=== PATIENT | female | born 1980 | race Caucasian/White ===

== ENCOUNTER → 2021-04-25 13:39 | Outpatient (CLI) | payer SELFPAY | PROVIDERS: Referring Provider Internal Medicine; Visit Provider Internal Medicine | DX: Z23 Encounter for immunization (principal) | CPT/HCPCS: 90471; 90686 ==

== ENCOUNTER → 2021-07-15 07:28 | Outpatient (CLI) | payer OTHER, SELFPAY ==
[2021-07-15 08:22] LABS: Add Manual Diff / Slide Review NO; Basophils Absolute Auto 0 /uL (0-100); Basophils Percent Auto 0.3 % (0-2); Eosinophils Absolute Auto 100 /uL (0-450); Eosinophils Percent Auto 1.6 % (2-4); Hematocrit 38.2 % (36-46); Hemoglobin 12.5 g/dL (12.0-16.0); Lymphocytes Absolute Auto 1900 /uL (1100-4500); Lymphocytes Percent Auto 26.3 % (25-40); Mean Corpuscular HGB Conc 32.7 % (30-36); Mean Corpuscular Hemoglobin 26.9 PG (26-34); Mean Corpuscular Volume 82.3 fL (80-100); Monocytes Absolute Auto 300 /uL (0-900); Monocytes Percent Auto 4.4 % (3-14); Neutrophils Absolute Auto 5000 /uL (1500-7000); Neutrophils Percent Auto 67.4 % (50-75); Platelet Count 271 X10^3/uL (150-400); Red Blood Cell Count 4.65 X10^6/uL (4.0-5.2); Red Cell Distribution Width 14.6 % (11.6-14.8); White Blood Cell Count 7.4 X10^3/uL (4.5-11.0)
[2021-07-15 08:30] LABS: Hemoglobin A1C% w Est Avg Glu 6.5 % (4.0-6.0)
[2021-07-15 08:51] LABS: Follicle Stimulating Hormone 9.38 mIU/mL
[2021-07-15 08:58] LABS: Alanine Aminotransferase 54 IU/L (<35); Albumin 4.5 g/dL (3.5-5.0); Albumin Globulin Ratio 1.3 (1.0-2.8); Alkaline Phosphatase 108 U/L (38-126); Aspartate Aminotransferase 41 IU/L (14-36); BUN Creatinine Ratio 19.6 (6-22); Bilirubin Total 0.3 mg/dL (0.2-1.3); Blood Urea Nitrogen 10 mg/dL (7-17); Calcium 9.7 mg/dL (8.4-10.2); Carbon Dioxide 27 mmol/L (22-32); Chloride 103 mmol/L (98-107); Cholesterol 205 mg/dL (140-199); Estimated Glomerular Filt Rate > 60.0 mL/min (>60); Globulin 3.4 g/dL (1.7-4.1); Glucose 125 mg/dL (70-100); HDL Cholesterol 55 mg/dL (40-60); HEMOLYSIS < 15 (0-50); LDL Cholesterol Calculated 127 mg/dL (<100); Potassium 4.1 mmol/L (3.4-5.1); Sodium 137 mmol/L (137-145); Total Protein 7.9 g/dL (6.3-8.2); Triglycerides 114 mg/dL (35-150)
[2021-07-15 09:07] LABS: Estradiol, Total 36.4 pg/mL
[2021-07-15 09:13] LABS: HCG Quantitative /Beta subunit < 2.4 mIU/mL; Prolactin 13.5 ng/mL (3.0-18.6)
[2021-07-15 09:28] LABS: TSH w/ Reflex to FT4 3.82 uIU/mL (0.47-4.68)
== END ==
PROVIDERS: PCP Nurse Practitioner Family; Referring Provider Nurse Practitioner Family; Visit Provider Nurse Practitioner Family
DX: Z00.8 Encounter for other general examination (principal); N91.2 Amenorrhea, unspecified; E66.01 Morbid (severe) obesity due to excess calories
CPT/HCPCS: 36415; 80053; 80061; 82670; 83001; 83036; 84146; 84443; 84702; 85025

== ENCOUNTER → 2021-08-07 07:30 | Outpatient (CLI) | payer OTHER, SELFPAY ==
--- NOTE | 2021-08-07 | DI.MG.S_ITS ---
BILATERAL DIGITAL SCREENING MAMMOGRAM 3D/2D WITH CAD: 08/07/2021 CLINICAL: Baseline exam. Routine screening. No prior exams were available for comparison. The tissue of both breasts is heterogeneously dense. This may lower the sensitivity of mammography. Current study was also evaluated with a Computer Aided Detection (CAD) system. No significant masses, calcifications, or other findings are seen in either breast. IMPRESSION: NEGATIVE There is no mammographic evidence of malignancy. A 1 year screening mammogram is recommended. This exam was interpreted at Station ID: [id number]. NOTE: For mammograms, a report in lay terms will be sent to the patient. Approximately 15% of breast malignancies will not be visualized mammographically. In the management of a palpable breast mass, a negative mammogram must not discourage biopsy of a clinically suspicious lesion. Electronically Signed By: Nestor stewart/betsy:08/07/2021 18:41:58 letter sent: Normal Exam ACR BI-RADS Category 1: Negative 3341F
== END ==
PROVIDERS: PCP Nurse Practitioner Family; Referring Provider Nurse Practitioner Family; Visit Provider Nurse Practitioner Family
DX: Z12.31 Encounter for screening mammogram for malignant neoplasm of breast (principal)
CPT/HCPCS: 77063; 77067

== ENCOUNTER → 2021-08-23 07:07 | Outpatient (CLI) | payer OTHER, SELFPAY ==
--- NOTE | 2021-08-23 07:09 | DI.US.S_ITS ---
PROCEDURE: US PELVIC COMPLETE INDICATIONS: AMENORRHEA TECHNIQUE: Real-time scanning was performed of the pelvic organs, with image documentation. Additional endovaginal scanning was necessary due to incomplete visualization of the adnexal and endometrial structures by transabdominal scanning. COMPARISON: None. FINDINGS: Uterus: Uterus is retroverted and normal in size at 8.8 x 5.5 x 7.5 cm. The myometrium is heterogeneous and includes several myometrial masses. An intramural mass along the posterior mid body measures up to 2.2 cm. Subserosal anterior midbody mass measures up to 4.2 cm. A right posterior intramural mass measures 1.8 cm. The endometrium measures seven mm combined thickness. The endometrial contour is not well seen. Ovaries: Neither ovary was seen. No suspicious adnexal mass. Other: No pathologic free abdominal or pelvic fluid. IMPRESSION: 1. Heterogeneous retroverted uterus containing several fibroids. 2. Nonvisualization of either ovary. We strive to produce accurate, complete, and clear reports of imaging services. To assist us in improving patient care, this report was composed using standard report templates and voice recognition software. Therefore, it may contain abnormal punctuation, insertions and/or omissions. Occasional wrong-word or sound-alike substitutions may occur. Though we review the report and make efforts to correct it, we do recommend that the report be read carefully in proper context to recognize any text inaccuracies. Dictated by: Rae Jade M.D. on 08/23/2021 at 11:34 Approved by: Rae Jade M.D. on 08/23/2021 at 11:38
== END ==
PROVIDERS: PCP Nurse Practitioner Family; Referring Provider Obstetrics & Gynecology; Visit Provider Obstetrics & Gynecology
DX: N91.2 Amenorrhea, unspecified (principal); R10.2 Pelvic and perineal pain; N85.4 Malposition of uterus; D25.1 Intramural leiomyoma of uterus; D25.2 Subserosal leiomyoma of uterus
CPT/HCPCS: 76830; 76856

== ENCOUNTER 2021-10-01 06:37 | Emergency (ER) | payer OTHER, SELFPAY ==
[2021-10-01 06:51] VITALS: BP 183/94; PULSE 94; RESP 18; TEMP 36.1; O2SAT 97; BMI 34.9
--- NOTE | 2021-10-01 06:55 | DI.RAD.S_ITS ---
PROCEDURE: XR KNEE LT 3V INDICATIONS: knee pain, prior surgery TECHNIQUE: 3 views of the knee were acquired. COMPARISON: [facility], CR, KNEE 1 OR 2VW (LT), 12/18/2014, 10:33. [facility], CR, XR KNEE 1 OR 2VW LT, 02/01/2015, 10:31. [facility], CR, XR KNEE 1 OR 2VW LT, 04/02/2015, 9:40. [facility], CR, XR KNEE 1 OR 2VW LT, 05/21/2015, 9:45. [facility], CR, KNEE 3V LEFT, 10/01/2014, 2:13. FINDINGS: Bones: Old patellar fracture with ORIF. There is fracture of the surgical wire. No fractures or dislocations. No suspicious bony lesions. Mild tricompartmental degenerative joint disease. Soft tissues: No joint effusion. No suspicious soft tissue calcifications. IMPRESSION: 1. Old patellar fracture with internal fixation. There is fracture of the surgical wire. 2. Mild degenerative joint disease. Dictated by: Danielle Sidhu M.D. on 10/01/2021 at 8:47 Approved by: Danielle Sidhu M.D. on 10/01/2021 at 8:51
--- NOTE | 2021-10-01 06:56 | PC.NURSE ---
pt broke her kneecap in 2014 and has a pin and wire in her knee cap
--- NOTE | 2021-10-01 07:17 | ED.LOWEXIN ---
HPI - Extremity Injury (Lower) General Chief Complaint: Extremity Injury, Lower Stated Complaint: Left knee sharp pain, hx of break/surgery Time Seen by Provider: 10/01/21 06:44 Source: patient Mode of arrival: Ambulatory History of Present Illness HPI Narrative: 41F nonsmoker with history of left knee patellar fracture and surgical repair (in 2014) presents with a chief complaint of sharp and stabbing left knee pain over the past few days. She denies any injury. She denies any swelling or discoloration, she has had no fever or chills. Her pain is worse when she ambulates and improves with rest. She still has her knee immobilizer at home, surgery was done by Dr. Morel. She is otherwise well and free of complaint Related Data Previous Rx's Medication Instructions Recorded tramadol 50 mg tablet 1 - 2 tab PO Q4HP PRN #10 tab 05/22/17 Allergies Allergy/AdvReac Type Severity Reaction Status Date / Time No Known Allergies Allergy Uncoded 10/01/21 06:51 Review of Systems Review of Systems Narrative: GENERAL: Denies chills, fatigue, malaise, fever, sweats. HEENT: Denies sinus pain, ear pain, sore throat, difficulty swallowing, dizziness. RESPIRATORY: Denies dyspnea, cough, wheezing, hemoptysis, sputum. CARDIOVASCULAR: Denies chest pain, palpitations, orthopnea, edema, GASTROINTESTINAL: Denies nausea, vomiting, abdominal pain, diarrhea, constipation, melena. : Denies dysuria, frequency, incontinence, hematuria, urinary retention. MUSCULOSKELETAL: See HPI SKIN: Denies rash, skin lesions, or other NEUROLOGIC: Denies weakness, headache, numbness, change in speech, confusion, seizures, incoordination. PSYCHIATRIC: No concerning psychosocial issues. 12 point review of systems is negative except for those stated above Exam Narrative Exam Narrative: GEN: AOx3 and in mild distress EYES: Pupils are equal, round, and reactive to light and accommodation. Extraoccular muscles are intact bilaterally. There is no subconjunctival hemorrhage or exudate. CHEST: Lungs are clear to auscultation bilaterally and free of wheezes, rales, or rhonchi. Heart rate is regular rhythm, there are no murmurs, clicks, rubs, or gallops. There is no chest wall tenderness. ABD: Abdomen is soft and nontender. There is no guarding or rebound. Bowel sounds are normal in all 4 quadrants. There is no mass or organomegaly. EXT: Full but painful range of motion of left knee without effusion, erythema or obvious deformity. Hardware is palpable on the patella, no evidence of ligamentous instability SKIN: Warm, pink, and dry. No erythema or rash Initial Vital Signs Initial Vital Signs: Vital Signs Temperature 97 F L 10/01/21 06:51 Pulse Rate 94 H 10/01/21 06:51 Respiratory Rate 18 10/01/21 06:51 Blood Pressure 183/94 H 10/01/21 06:51 Pulse Oximetry 97 10/01/21 06:51 Course Orders Ordered: ED Orders 10/01/21 06:55 XR knee LT 3V Stat Consultations Consultation #1: Discussed with on-call orthopedist. There has been review of imaging, no indication for any intervention at this time, recommends following up with Dr. Morel Vital Signs Vital signs: Vital Signs - 8 hr 10/01/21 06:51 Temperature 97 F L Pulse Rate 94 H Respiratory Rate 18 Blood Pressure 183/94 H Pulse Oximetry 97 MDM - Extremity Injury (Lower) Imaging Data Extremity x-ray #1: Radiologist's Impression: Launch?[place] [address] XRay Report Signed Patient: Zayda Hair MR#: [id number] : 1980 Acct:[id number] Age/Sex: 41 / F Date of Service: 10/01/21 Loc: ED Accession Number: [id number] ?? Procedure: XR knee LT 3V Ordering Provider: Gurpreet Sandhu D.O. PROCEDURE:? XR KNEE LT 3V ? INDICATIONS:? knee pain, prior surgery ? TECHNIQUE:? 3 views of the knee were acquired.? ? COMPARISON:? [facility] JENNIE Campuzano, KNEE 1 OR 2VW (LT), 12/18/2014, 10:33.? [facility] [place], XR KNEE 1 OR 2VW LT, 02/01/2015, 10:31.? [facility]opedic JENNIE Graham, XR KNEE 1 OR 2VW LT, 04/02/2015, 9:40.? [facility]opedic JENNIE Graham, XR KNEE 1 OR 2VW LT, 05/21/2015, 9:45.? [facility], CR, KNEE 3V LEFT, 10/01/2014, 2:13. ? FINDINGS:? ? Bones:? Old patellar fracture with ORIF.? There is fracture of the surgical wire.? No fractures or dislocations.? No suspicious bony lesions.? Mild tricompartmental degenerative joint disease. ? Soft tissues:? No joint effusion.? No suspicious soft tissue calcifications.? ? ? IMPRESSION:? ? 1. Old patellar fracture with internal fixation.? There is fracture of the surgical wire. 2. Mild degenerative joint disease.? ? ? Dictated by: Danielle Sidhu M.D. on 10/01/2021 at 8:47 ? ? Approved by: Danielle Sidhu M.D. on 10/01/2021 at 8:51 ? Discharge Plan Departure Patient Disposition: Home Clinical Impression: Anterior knee pain Activity Restrictions/Additional Instructions: *You have been diagnosed with [left anterior knee pain, x-ray suggests a broken surgical wire which is incredibly common with this surgery. I have spoken with Dr. Morel's partner who has reviewed the Xray and suggests following up with Dr. Morel, but there is very little evidence to suggest that you would need a procedure to fix this. *What to do: *Please continue to take your regular medications as directed. [ ] New medication prescriptions sent to your pharmacy: [ ] [ ] New medication written as a paper prescription [x ] No new medications given *Please follow up with Dr. Morel, call today for an appointment. Let them know you were seen in the Emergency Department and that we ask that you be seen in follow up. We will electronically transmit a record of today's note if your PCP is in our system *Return to Emergency Department if you should have any new, worsening or concerning symptoms, such as [fever greater than 101 F, shaking chills, worsening pain, persistent vomiting or other bothersome symptoms] Prescriptions: No Action tramadol 50 MG tablet 1 - 2 tab PO Q4HP PRNQty: 10 0RF Referrals: Art Morel MD [Physician] - Laura Caballero ARNP [Primary Care Provider] -
== END 2021-10-01 09:20 | disposition home or self-care (01) ==
PROVIDERS: Emergency Provider Emergency Medicine; PCP Nurse Practitioner Family
DX: M25.562 Pain in left knee (principal)
CPT/HCPCS: 73562; 99283

== ENCOUNTER → 2021-10-21 15:42 | Outpatient (CLI) | payer OTHER, SELFPAY ==
[2021-10-21 17:35] LABS: Free T3, Triiodothyronine Free 4.37 pg/mL (2.77-5.27); Free T4, Direct Thyroxine 1.17 ng/dL (0.78-2.19)
[2021-10-21 17:48] LABS: Thyroid Stimulating Hormone 5.39 uIU/mL (0.47-4.68)
[2021-10-27 10:00] LABS: Percent Free Testosterone 3.19 % (0.50-2.80); Testosterone Free 0.24 ng/dL (0.10-0.85); Testosterone Total 7.4 ng/dL (.)
[2021-10-28 19:16] LABS: Triiodothyronine T3 Reverse 14.9 ng/dL (9.2-24.1)
== END ==
PROVIDERS: PCP Nurse Practitioner Family; Referring Provider Obstetrics & Gynecology; Visit Provider Obstetrics & Gynecology
DX: R23.2 Flushing (principal)
CPT/HCPCS: 36415; 84402; 84403; 84439; 84443; 84481; 84482

== ENCOUNTER → 2022-01-23 06:20 | Outpatient (CLI) | payer OTHER, SELFPAY ==
[2022-01-23 09:15] LABS: Add Manual Diff / Slide Review NO; Basophils Absolute Auto 0 /uL (0-100); Basophils Percent Auto 0.5 % (0-2); Eosinophils Absolute Auto 100 /uL (0-450); Eosinophils Percent Auto 1.7 % (2-4); Hematocrit 38.4 % (36-46); Hemoglobin 12.9 g/dL (12.0-16.0); Lymphocytes Absolute Auto 2400 /uL (1100-4500); Lymphocytes Percent Auto 29.9 % (25-40); Mean Corpuscular HGB Conc 33.6 % (30-36); Mean Corpuscular Hemoglobin 28.2 PG (26-34); Mean Corpuscular Volume 83.8 fL (80-100); Monocytes Absolute Auto 400 /uL (0-900); Neutrophils Absolute Auto 5000 /uL (1500-7000); Neutrophils Percent Auto 62.9 % (50-75); Platelet Count 186 X10^3/uL (150-400); Red Blood Cell Count 4.58 X10^6/uL (4.0-5.2)
[2022-01-23 09:27] LABS: Alanine Aminotransferase 137 IU/L (<35); Albumin 4.3 g/dL (3.5-5.0); Albumin Globulin Ratio 1.5 (1.0-2.8); Alkaline Phosphatase 135 U/L (38-126); Aspartate Aminotransferase 107 IU/L (14-36); BUN Creatinine Ratio 23.8 (6-22); Bilirubin Total 0.5 mg/dL (0.2-1.3); Blood Urea Nitrogen 10 mg/dL (7-17); Calcium 8.9 mg/dL (8.4-10.2); Carbon Dioxide 26 mmol/L (22-32); Chloride 99 mmol/L (98-107); Cholesterol 192 mg/dL (140-199); Estimated Glomerular Filt Rate > 60 mL/min (>60); Globulin 2.9 g/dL (1.7-4.1); Glucose 209 mg/dL (70-100); HDL Cholesterol 44 mg/dL (40-60); HEMOLYSIS < 15 (0-50); LDL Cholesterol Calculated 122 mg/dL (<100); Potassium 3.9 mmol/L (3.4-5.1); Sodium 136 mmol/L (137-145); Total Protein 7.2 g/dL (6.3-8.2); Triglycerides 131 mg/dL (35-150)
[2022-01-23 09:28] LABS: Hemoglobin A1C% w Est Avg Glu 9.1 % (4.0-6.0)
[2022-01-23 10:10] LABS: TSH w/ Reflex to FT4 3.62 uIU/mL (0.47-4.68)
[2022-01-23 10:49] LABS: Creatinine Urine Random 191.8 mg/dL
[2022-01-23 11:20] LABS: Microalbumi Creatinin Ratio Ur 152.7 ug/mg CR (<30); Microalbumin Urine Random 29.3 mg/dL (0-1.6)
== END ==
PROVIDERS: PCP Family Medicine; Referring Provider Family Medicine; Visit Provider Family Medicine
DX: E03.9 Hypothyroidism, unspecified (principal); E78.5 Hyperlipidemia, unspecified; E73.9 Lactose intolerance, unspecified; R74.8 Abnormal levels of other serum enzymes
CPT/HCPCS: 36415; 80053; 80061; 82043; 82570; 83036; 84443; 85025

== ENCOUNTER → 2022-01-27 06:07 | Outpatient (CLI) | payer OTHER, SELFPAY ==
[2022-01-27 09:08] LABS: Cortisol AM (Before 10AM) 1.28 ug/dL (4.46-22.7)
[2022-01-28 00:20] LABS: HBsAg Screen Negative (Negative); Hepatitis A Antibody IgM Negative (Negative); Hepatitis B Core Antibody IgM Negative (Negative); Hepatitis C Antibody <0.1 s/co ratio (0.0-0.9)
[2022-01-30 17:12] LABS: Cortisol Fr ug/24hr urine 23 ug/24 hr (6-42); Cortisol, Free, Urine 11 ug/L (Undefined)
== END ==
PROVIDERS: PCP Family Medicine; Referring Provider Family Medicine; Visit Provider Family Medicine
DX: E03.9 Hypothyroidism, unspecified (principal); E11.69 Type 2 diabetes mellitus with other specified complication; E66.9 Obesity, unspecified; R73.9 Hyperglycemia, unspecified; R74.8 Abnormal levels of other serum enzymes; N91.5 Oligomenorrhea, unspecified; R63.5 Abnormal weight gain
CPT/HCPCS: 36415; 80074; 82530; 82533

== ENCOUNTER → 2022-03-04 09:00 | Outpatient (CLI) | payer OTHER, SELFPAY | PROVIDERS: PCP Family Medicine; Referring Provider Internal Medicine; Visit Provider Internal Medicine | DX: Z23 Encounter for immunization (principal) | CPT/HCPCS: 90471; 90686 ==

== ENCOUNTER → 2022-04-03 09:15 | Outpatient (CLI) | payer OTHER, SELFPAY ==
--- NOTE | 2022-04-16 10:04 | DIAB.MNT ---
Initial Diabetes Medical Nutrition Therapy Assessment Name: Zayda Hair Date: 04/03/22 Time: [id number] Dx: Type II Diabetes Provider: Aracelis Zayda presents for initial visit regarding new dx of T2DM. +FH of DM with mother, sister, and maternal grandparents. Reports +60# over 5 months for unknown reasons. States she plans to make an resident athletic trainer appointment. States she has not had a menstrual cycle since Mar 2021. Plans to see PCP again 04/25 at which time she plans to discuss SMBG. 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 She recent switched to this schedule of 11p-730a. Often goes hours during her shift without eating. Reports efforts to cut down on chips and cookies. Cut out soda last 2 weeks. use to have q day. Diet Recall: 530-6p: 2c pasta with meat or veggies sauce OR pizza x 2-3 slices OR chicken with 1c potatoes or stuffing x 1c or 2c hamburger helper (30-90g CHO) 2-3p: PBJ sandwich or nothing (0-45g CHO) 9a: eggs, toast x 2 with butter or cheerios x 1c wtih 1c milk and 8oz juice (30-65g CHO) 12-1p: if awake sandwich (30-45g) or nothing Anthropometrics: Ht: 65 Wt: 266# Weight history: Reported UBW: 180-200# Physical Activity: Walking treadmill 20 min 3 days per week for last couple months Self-Monitoring Blood Glucose: None yet Diabetes Medications: 1000mg Metformin BID Glipizide 5mg XR Pertinent Labs: 01/2022 HgA1c: 9.1% LDL: 122 H Total cholesterol: 192 HDL: 44 L AST: 107 H ALT: 137 H Past Medical History: (Last Updated 03/14/22 @ 13:37 by Garrison Hsu MD) Back strain Chronic back pain Diabetes mellitus type 2 in obese Excessive daytime sleepiness Hyperglycemia Hypothyroidism Nutrition Rx: Carbohydrates: Meal:30-45g Snack:15g Nutrition Diagnosis: - Excessive CHO intake r/t nutrition knowledge deficit and long periods of fasting aeb diet recall - Suboptimal physical activity r/t just starting new program aeb pt report - Predicted inadequate fiber intake r/t nutrition knowledge deficit aeb limited veggies and whole grain intake Intervention: This participant was very receptive. Provided appropriate educational handouts. Discussed the following topics: Completed intake assessment. Discussed barriers to care. Pathophysiology of T2DM HgA1c, its correlation to blood glucose numbers, and rationale for goal Importance of self-monitoring, how often, and when to check. Suggested checking at different times to evaluate meals Plate Method, impact of macronutrients on blood sugar, meal timing, carbohydrate counting, pairing macronutrients and spreading out carbohydrates for better blood glucose management Recommended servings for carbohydrates at meals and snacks Heart health nutrition Brainstormed appropriate meal plan based on food preferences Role of physical activity and following provider guidelines for safety Created SMART goals for patient self-care and success. Goals: Pair carbs and protein for meals/snacks Add vegetables to dinner Add one more exercise 3 days per week Follow-up: [facility] follow-up in 3 weeks for DSME classes and then 1:1 follow-up thereafter. Sylvia Hernandez RDN, [facility] Certified Diabetes Care and Television Mechanic P: [phone] Thank you for this referral
== END ==
PROVIDERS: PCP Family Medicine; Referring Provider Family Medicine; Visit Provider Family Medicine
DX: E11.9 Type 2 diabetes mellitus without complications (principal); Z79.84 Long term (current) use of oral hypoglycemic drugs; Z71.3 Dietary counseling and surveillance
CPT/HCPCS: 97802

== ENCOUNTER → 2022-04-14 07:28 | Outpatient (CLI) | payer OTHER, SELFPAY ==
[2022-04-14 10:41] LABS: Alanine Aminotransferase 103 IU/L (<35); Albumin 4.5 g/dL (3.5-5.0); Albumin Globulin Ratio 1.3 (1.0-2.8); Alkaline Phosphatase 126 U/L (38-126); Aspartate Aminotransferase 76 IU/L (14-36); Bilirubin Total 0.3 mg/dL (0.2-1.3); Blood Urea Nitrogen 10 mg/dL (7-17); Carbon Dioxide 23 mmol/L (22-32); Chloride 102 mmol/L (98-107); Estimated Glomerular Filt Rate > 60 mL/min (>60); Globulin 3.4 g/dL (1.7-4.1); Glucose 190 mg/dL (70-100); HEMOLYSIS < 15 (0-50); Potassium 4.2 mmol/L (3.4-5.1); Sodium 139 mmol/L (137-145); Total Protein 7.9 g/dL (6.3-8.2)
== END ==
PROVIDERS: PCP Family Medicine; Referring Provider Family Medicine; Visit Provider Family Medicine
DX: E03.9 Hypothyroidism, unspecified (principal); E11.69 Type 2 diabetes mellitus with other specified complication; E66.9 Obesity, unspecified; G89.29 Other chronic pain; M54.9 Dorsalgia, unspecified; R74.8 Abnormal levels of other serum enzymes
CPT/HCPCS: 36415; 80053; 83036

== ENCOUNTER → 2022-05-13 08:12 | Outpatient (CLI) | payer OTHER, SELFPAY ==
--- NOTE | 2022-05-13 09:29 | DIAB.MNTFU ---
Follow-up Diabetes Medical Nutrition Therapy Assessment Name: Zayda Hair Date: 05/13/22 Time: 470-901a Dx: Type II Diabetes Provider: Aracelis Zayda presents for follow-up with improved HgA1c form 9.1% to 8%. Increase in glipizide to 10mg daily since seeing PCP. Has endo visit scheduled for June. Also has sleep study 05/26 and liver ultrasound this thursday. Reports reduced carb portions since last visit and more small/consistent meal/snacks through the day. Feels this change has helped reduce her hunger and urge to eat all the time. Overall, improved energy reported since BG reduced. Diet Recall: 6pm: 1c pasta with chicken and veggies 1am: sandwich 3-4p: nothing or fruit or carrots 8a: bagel sandwich with egg and cheese sometimes may wake for 1-2p lunch: sandwich Anthropometrics: Wt: declined wt today; feels she is losing weight, but would like to wait on weighing in. Ht: 65 Last Wt: At PCP indicated increase in wt. Hoping for more info from endo visit in Jun. Weight history: Reported UBW: 180-200# Physical Activity: Walking treadmill 30-45 min 3 days per week. Increased from 20min. Also trying to be more active at work. Sedentary job. tries to walk when not busy. Self-Monitoring Blood Glucose: States pharmacy said insurance will not cover. Asked that she contact insurance as this does not seem correct with Dm diagnosis. She purchased a reli-on meter. FBG reports 100-105 mg/dl (in goal) and after dinner 140-150mg/dl (in goal). Diabetes Medications: 1000mg Metformin BID Glipizide 10mg XR Pertinent Labs: HgA1c, AST and ALT reduced since January. 04/2022 HgA1c 8% AST 76 ALT 103 01/2022 HgA1c: 9.1% LDL: 122 H Total cholesterol: 192 HDL: 44 L AST: 107 H ALT: 137 H Past Medical History: (Last Reviewed 04/24/22 @ 09:07 by Americo Jones MD) Back strain Chronic back pain Diabetes mellitus type 2 in obese Excessive daytime sleepiness Hyperglycemia Hypothyroidism Nutrition Rx: Carbohydrates: Meal:30-45g Snack:15g Nutrition Diagnosis: - Excessive CHO intake r/t nutrition knowledge deficit and long periods of fasting aeb diet recall- improved - Suboptimal physical activity r/t just starting new program aeb pt report- improved - Predicted inadequate fiber intake r/t nutrition knowledge deficit aeb limited veggies and whole grain intake- improved Intervention: This participant was very receptive. Provided appropriate educational handouts. Discussed the following topics: Blood sugar review and trends. Nutrition plan and satiety Impact hyperglycemia has on fatigue Physical activity plan and progress Created SMART goals for patient self-care and success. Goals: Pair carbs and protein for meals/snacks- improved Add vegetables to dinner- met Add one more exercise 3 days per week- not met (increased time instead) Call insurance about SMBG coverage- new Consider more consistent 4-5a snack- new Add protein to fruit- new Follow-up: [facility] follow-up in June for DSME classes and then 1:1 follow-up thereafter. Offered sooner 1:1 prn, but Zayda feels she is doing well with changes. Sylvia Hernandez RDN, [facility] Certified Diabetes Care and Assurance Manager Insurance P: [phone] Thank you for this referral
== END ==
PROVIDERS: PCP Family Medicine; Referring Provider Family Medicine; Visit Provider Family Medicine
DX: E11.9 Type 2 diabetes mellitus without complications (principal); Z79.84 Long term (current) use of oral hypoglycemic drugs; Z71.3 Dietary counseling and surveillance
CPT/HCPCS: 97803

== ENCOUNTER → 2022-05-19 06:46 | Outpatient (CLI) | payer OTHER, SELFPAY ==
--- NOTE | 2022-05-19 06:47 | DI.US.S_ITS ---
PROCEDURE: US ABDOMEN LIMITED INDICATIONS: elevated liver enzymes TECHNIQUE: Real-time focused scanning was performed of the abdomen, with image documentation. COMPARISON: None. FINDINGS: Liver is diffusely increased in echogenicity. No focal hepatic abnormalities identified. Normal hepatic size.No gallstones identified. Normal gallbladder wall. No pericholecystic fluid. Negative sonographic Jaramillo sign. Extrahepatic bile duct is not well seen. Pancreas not well seen. IMPRESSION: 1. Increased hepatic echogenicity noted possibly related to hepatic steatosis but other sources of hepatocellular disease cannot be excluded. Recommend clinical correlation. Dictated by: Luther Adler [facility] Interpreted: Andrés Nicholson MD on 05/19/2022 at 16:49 Transcribed by: BERNADETTE on 05/19/2022 at 16:50 Approved by: Andrés Nicholson M.D. on 05/19/2022 at 18:21
== END ==
PROVIDERS: PCP Family Medicine; Referring Provider Family Medicine; Visit Provider Family Medicine
DX: E11.69 Type 2 diabetes mellitus with other specified complication (principal); E66.9 Obesity, unspecified; R74.8 Abnormal levels of other serum enzymes
CPT/HCPCS: 76705

== ENCOUNTER → 2022-07-14 07:27 | Outpatient (CLI) | payer OTHER, SELFPAY ==
[2022-07-14 08:23] LABS: Add Manual Diff / Slide Review NO; Basophils Absolute Auto 100 /uL (0-100); Basophils Percent Auto 0.5 % (0-2); Eosinophils Absolute Auto 300 /uL (0-450); Eosinophils Percent Auto 2.5 % (2-4); Hematocrit 36.6 % (36-46); Hemoglobin 11.8 g/dL (12.0-16.0); Lymphocytes Absolute Auto 2700 /uL (1100-4500); Lymphocytes Percent Auto 23.3 % (25-40); Mean Corpuscular HGB Conc 32.3 % (30-36); Mean Corpuscular Hemoglobin 27.2 PG (26-34); Mean Corpuscular Volume 84.2 fL (80-100); Monocytes Absolute Auto 600 /uL (0-900); Monocytes Percent Auto 4.8 % (3-14); Neutrophils Absolute Auto 8000 /uL (1500-7000); Neutrophils Percent Auto 68.9 % (50-75); Platelet Count 275 X10^3/uL (150-400); Red Blood Cell Count 4.34 X10^6/uL (4.0-5.2); Red Cell Distribution Width 14.4 % (11.6-14.8); White Blood Cell Count 11.7 X10^3/uL (4.5-11.0)
[2022-07-14 08:32] LABS: Hemoglobin A1C% w Est Avg Glu 6.9 % (4.0-6.0)
[2022-07-14 08:57] LABS: Alanine Aminotransferase 91 IU/L (<35); Albumin 4.2 g/dL (3.5-5.0); Albumin Globulin Ratio 1.2 (1.0-2.8); Alkaline Phosphatase 158 U/L (38-126); Aspartate Aminotransferase 89 IU/L (14-36); BUN Creatinine Ratio 19.7 (6-22); Bilirubin Total 0.4 mg/dL (0.2-1.3); Blood Urea Nitrogen 12 mg/dL (7-17); Calcium 8.7 mg/dL (8.4-10.2); Carbon Dioxide 27 mmol/L (22-32); Chloride 102 mmol/L (98-107); Cholesterol 121 mg/dL (140-199); Estimated Glomerular Filt Rate > 60 mL/min (>60); Globulin 3.5 g/dL (1.7-4.1); Glucose 108 mg/dL (70-100); HDL Cholesterol 28 mg/dL (40-60); HEMOLYSIS < 15 (0-50); LDL Cholesterol Calculated 64 mg/dL (<100); Potassium 3.7 mmol/L (3.4-5.1); Sodium 140 mmol/L (137-145); Total Protein 7.7 g/dL (6.3-8.2); Triglycerides 144 mg/dL (35-150)
[2022-07-14 09:36] LABS: TSH w/ Reflex to FT4 2.65 uIU/mL (0.47-4.68)
[2022-07-14 10:26] LABS: Creatinine Urine Random 175.1 mg/dL
[2022-07-14 10:33] LABS: Microalbumi Creatinin Ratio Ur 21.7 ug/mg CR (<30); Microalbumin Urine Random 3.8 mg/dL (0-1.6)
== END ==
PROVIDERS: PCP Family Medicine; Referring Provider Family Medicine; Visit Provider Family Medicine
DX: E03.9 Hypothyroidism, unspecified (principal); E11.69 Type 2 diabetes mellitus with other specified complication; E66.9 Obesity, unspecified; R74.8 Abnormal levels of other serum enzymes
CPT/HCPCS: 36415; 80053; 80061; 82043; 82570; 83036; 84443; 85025

== ENCOUNTER → 2022-08-11 07:20 | Outpatient (CLI) | payer OTHER, SELFPAY ==
--- NOTE | 2022-08-11 07:22 | DI.MG.S_ITS ---
BILATERAL DIGITAL SCREENING MAMMOGRAM 3D/2D WITH CAD: 08/11/2022 CLINICAL: Routine screening. Comparison is made to exam dated: 08/07/2021 mammogram - [facility]. Both breasts are heterogeneously dense, which may obscure small masses (category c / 51-75% glandular tissue). Current study was also evaluated with a Computer Aided Detection (CAD) system. No significant masses, calcifications, or other findings are seen in either breast. There has been no significant interval change. IMPRESSION: NEGATIVE There is no mammographic evidence of malignancy. A 1 year screening mammogram is recommended. Based on the Tyrer Cuzick model (a risk assessment model) the patient's lifetime risk is 10.4% and her 10 year risk is 1.7%. According to the ACR, ACS, and NCCN guidelines, an annual breast MRI exam along with mammogram is recommended if the patient's lifetime risk is 20% or greater. This exam was interpreted at Station ID: [id number]. NOTE: For mammograms, a report in lay terms will be sent to the patient. Approximately 15% of breast malignancies will not be visualized mammographically. In the management of a palpable breast mass, a negative mammogram must not discourage biopsy of a clinically suspicious lesion. Electronically Signed By: Andrés del rosario/betsy:08/11/2022 09:19:53 letter sent: Normal Exam ACR BI-RADS Category 1: Negative 3341F
[2022-08-11 09:44] LABS: Creatinine Urine Random 188.2 mg/dL
[2022-08-11 09:50] LABS: Microalbumi Creatinin Ratio Ur 46.7 ug/mg CR (<30); Microalbumin Urine Random 8.8 mg/dL (0-1.6)
[2022-08-11 09:51] LABS: Hemoglobin A1C% w Est Avg Glu 6.8 % (4.0-6.0)
[2022-08-11 09:59] LABS: Alanine Aminotransferase 80 IU/L (<35); Albumin 4.3 g/dL (3.5-5.0); Albumin Globulin Ratio 1.1 (1.0-2.8); Alkaline Phosphatase 133 U/L (38-126); Aspartate Aminotransferase 69 IU/L (14-36); BUN Creatinine Ratio 19.2 (6-22); Bilirubin Total 0.4 mg/dL (0.2-1.3); Blood Urea Nitrogen 10 mg/dL (7-17); Calcium 8.5 mg/dL (8.4-10.2); Carbon Dioxide 25 mmol/L (22-32); Chloride 103 mmol/L (98-107); Cholesterol 116 mg/dL (140-199); Estimated Glomerular Filt Rate > 60 mL/min (>60); Globulin 3.9 g/dL (1.7-4.1); Glucose 105 mg/dL (70-100); HDL Cholesterol 32 mg/dL (40-60); HEMOLYSIS < 15 (0-50); LDL Cholesterol Calculated 50 mg/dL (<100); Potassium 3.5 mmol/L (3.4-5.1); Sodium 139 mmol/L (137-145); Total Protein 8.2 g/dL (6.3-8.2); Triglycerides 172 mg/dL (35-150)
[2022-08-11 10:20] LABS: Follicle Stimulating Hormone 3.57 mIU/mL; Luteinizing Hormone 3.65 mIU/mL
[2022-08-11 10:34] LABS: TSH w/ Reflex to FT4 5.09 uIU/mL (0.47-4.68)
[2022-08-11 10:58] LABS: Free T4, Direct Thyroxine 1.19 ng/dL (0.78-2.19)
[2022-08-20 12:47] LABS: Anti Mullerian Hormone 0.149 ng/mL (.)
[2022-08-22 05:30] LABS: Testosterone % Fr + Wkly bound 9.7 % (3.0-18.0); Testosterone Fr+Wkly bound 1.7 ng/dL (0.0-9.5); Testosterone, Total 17.3 ng/dL (.)
== END ==
PROVIDERS: PCP Family Medicine; Referring Provider Internal Medicine Endocrinology, Diabetes & Metabolism; Visit Provider Internal Medicine Endocrinology, Diabetes & Metabolism
DX: Z12.31 Encounter for screening mammogram for malignant neoplasm of breast (principal); E11.69 Type 2 diabetes mellitus with other specified complication; N91.2 Amenorrhea, unspecified; R63.5 Abnormal weight gain
CPT/HCPCS: 36415; 77063; 77067; 80053; 80061; 82043; 82397; 82570; 83001; 83002; 83036; 83498; 84403; 84439; 84443

== ENCOUNTER → 2022-08-18 07:28 | Outpatient (CLI) | payer OTHER, SELFPAY ==
[2022-08-22 18:05] LABS: Cortisol Fr ug/24hr urine 109 ug/24 hr (6-42); Cortisol, Free, Urine 32 ug/L (Undefined)
[2022-08-26 06:25] LABS: Cortisol, Saliva 1 sample 0.303 ug/dL (.)
== END ==
PROVIDERS: PCP Family Medicine; Referring Provider Internal Medicine Endocrinology, Diabetes & Metabolism; Visit Provider Internal Medicine Endocrinology, Diabetes & Metabolism
DX: R63.5 Abnormal weight gain (principal)
CPT/HCPCS: 82530; 82533

== ENCOUNTER → 2022-09-29 07:25 | Outpatient (CLI) | payer OTHER, SELFPAY ==
[2022-09-29 08:50] LABS: Cortisol AM (Before 10AM) 1.28 ug/dL (4.46-22.7)
[2022-09-29 09:05] LABS: Free T4, Direct Thyroxine 1.14 ng/dL (0.78-2.19)
[2022-09-29 09:19] LABS: Thyroid Stimulating Hormone 1.12 uIU/mL (0.47-4.68)
[2022-10-01 08:41] LABS: Adrenocorticotropic Hormone <1.5 pg/mL (7.2-63.3)
[2022-10-07 08:07] LABS: Dexamethasone, Serum 462 ng/dL (.)
== END ==
PROVIDERS: PCP Family Medicine; Referring Provider Internal Medicine Endocrinology, Diabetes & Metabolism; Visit Provider Internal Medicine Endocrinology, Diabetes & Metabolism
DX: R79.89 Other specified abnormal findings of blood chemistry (principal); E03.9 Hypothyroidism, unspecified
CPT/HCPCS: 36415; 80375; 82024; 82533; 84439; 84443

== ENCOUNTER → 2022-11-10 07:33 | Outpatient (CLI) | payer OTHER, SELFPAY ==
[2022-11-10 08:53] LABS: Alanine Aminotransferase 93 IU/L (<35); Albumin 4.4 g/dL (3.5-5.0); Albumin Globulin Ratio 1.4 (1.0-2.8); Alkaline Phosphatase 137 U/L (38-126); Aspartate Aminotransferase 105 IU/L (14-36); BUN Creatinine Ratio 21.3 (6-22); Bilirubin Total 0.4 mg/dL (0.2-1.3); Blood Urea Nitrogen 10 mg/dL (7-17); Calcium 8.7 mg/dL (8.4-10.2); Carbon Dioxide 25 mmol/L (22-32); Chloride 103 mmol/L (98-107); Cholesterol 123 mg/dL (140-199); Estimated Glomerular Filt Rate > 60 mL/min (>60); Globulin 3.2 g/dL (1.7-4.1); Glucose 107 mg/dL (70-100); HDL Cholesterol 40 mg/dL (40-60); HEMOLYSIS < 15 (0-50); LDL Cholesterol Calculated 55 mg/dL (<100); Potassium 4.1 mmol/L (3.4-5.1); Sodium 138 mmol/L (137-145); Total Protein 7.6 g/dL (6.3-8.2); Triglycerides 138 mg/dL (35-150)
[2022-11-10 10:18] LABS: Creatinine Urine Random 174.9 mg/dL
[2022-11-10 10:26] LABS: Microalbumin Urine Random 10.5 mg/dL (0-1.6)
[2022-11-11 07:43] LABS: x Labcorp Estim. Avg Glu (eAG) 166 mg/dL (.); x Labcorp Hemoglobin A1c 7.4 % (4.8-5.6)
== END ==
PROVIDERS: PCP Family Medicine; Referring Provider Internal Medicine Endocrinology, Diabetes & Metabolism; Visit Provider Internal Medicine Endocrinology, Diabetes & Metabolism
DX: E11.69 Type 2 diabetes mellitus with other specified complication (principal)
CPT/HCPCS: 36415; 80053; 80061; 82043; 82570; 83036

== ENCOUNTER → 2023-03-19 | Outpatient (CLI) | payer OTHER, SELFPAY | PROVIDERS: PCP Family Medicine; Referring Provider Family Medicine; Visit Provider Family Medicine | DX: Z23 Encounter for immunization (principal) | CPT/HCPCS: 90471; 90686 ==

== ENCOUNTER → 2023-04-08 07:29 | Outpatient (CLI) | payer OTHER, SELFPAY ==
[2023-04-08 08:52] LABS: Free T4, Direct Thyroxine 1.25 ng/dL (0.78-2.19)
== END ==
PROVIDERS: PCP Family Medicine; Referring Provider Internal Medicine Endocrinology, Diabetes & Metabolism; Visit Provider Internal Medicine Endocrinology, Diabetes & Metabolism
DX: E03.9 Hypothyroidism, unspecified (principal)
CPT/HCPCS: 36415; 84439; 84443

== ENCOUNTER → 2023-05-04 07:27 | Outpatient (CLI) | payer OTHER, SELFPAY ==
[2023-05-04 08:07] LABS: Hemoglobin A1C% w Est Avg Glu 6.7 % (4.0-6.0)
[2023-05-04 08:09] LABS: Alanine Aminotransferase 89 IU/L (<35); Albumin 4.6 g/dL (3.5-5.0); Albumin Globulin Ratio 1.4 (1.0-2.8); Alkaline Phosphatase 114 U/L (38-126); Aspartate Aminotransferase 76 IU/L (14-36); BUN Creatinine Ratio 30.2 (6-22); Bilirubin Total 0.5 mg/dL (0.2-1.3); Blood Urea Nitrogen 16 mg/dL (7-17); Calcium 9.8 mg/dL (8.4-10.2); Carbon Dioxide 24 mmol/L (22-32); Chloride 104 mmol/L (98-107); Estimated Glomerular Filt Rate > 60 mL/min (>60); Globulin 3.4 g/dL (1.7-4.1); Glucose 95 mg/dL (70-100); HEMOLYSIS < 15 (0-50); Sodium 139 mmol/L (137-145)
== END ==
PROVIDERS: PCP Family Medicine; Referring Provider Family Medicine; Visit Provider Family Medicine
DX: E11.69 Type 2 diabetes mellitus with other specified complication (principal); E66.9 Obesity, unspecified; E03.9 Hypothyroidism, unspecified; R74.8 Abnormal levels of other serum enzymes
CPT/HCPCS: 36415; 80053; 83036

== ENCOUNTER → 2023-06-16 07:24 | Outpatient (CLI) | payer OTHER, SELFPAY ==
[2023-06-16 08:27] LABS: Creatinine Urine Random 228.6 mg/dL; Hemoglobin A1C% w Est Avg Glu 6.2 % (4.0-6.0)
[2023-06-16 08:33] LABS: Alanine Aminotransferase 79 IU/L (<35); Albumin 4.6 g/dL (3.5-5.0); Albumin Globulin Ratio 1.3 (1.0-2.8); Alkaline Phosphatase 136 U/L (38-126); Aspartate Aminotransferase 65 IU/L (14-36); BUN Creatinine Ratio 16.3 (6-22); Bilirubin Total 0.7 mg/dL (0.2-1.3); Blood Urea Nitrogen 8 mg/dL (7-17); Calcium 9.7 mg/dL (8.4-10.2); Carbon Dioxide 26 mmol/L (22-32); Chloride 99 mmol/L (98-107); Cholesterol 117 mg/dL (140-199); Estimated Glomerular Filt Rate > 60 mL/min (>60); Globulin 3.6 g/dL (1.7-4.1); Glucose 99 mg/dL (70-100); HDL Cholesterol 42 mg/dL (40-60); HEMOLYSIS < 15 (0-50); LDL Cholesterol Calculated 50 mg/dL (<100); Sodium 138 mmol/L (137-145); Total Protein 8.2 g/dL (6.3-8.2); Triglycerides 125 mg/dL (35-150)
[2023-06-16 20:11] LABS: Microalbumi Creatinin Ratio Ur 17.4 ug/mg CR (<30)
== END ==
PROVIDERS: PCP Family Medicine; Referring Provider Internal Medicine Endocrinology, Diabetes & Metabolism; Visit Provider Internal Medicine Endocrinology, Diabetes & Metabolism
DX: E11.69 Type 2 diabetes mellitus with other specified complication (principal)
CPT/HCPCS: 36415; 80053; 80061; 82043; 82570; 83036

== ENCOUNTER → 2023-08-21 07:28 | Outpatient (CLI) | payer OTHER, SELFPAY ==
--- NOTE | 2023-08-21 07:30 | DI.MG.S_ITS ---
BILATERAL DIGITAL SCREENING MAMMOGRAM 3D/2D WITH CAD: 08/21/2023 CLINICAL: Routine screening. Comparison is made to exams dated: 08/11/2022 mammogram and 08/07/2021 mammogram - [facility]. Both breasts are heterogeneously dense, which may obscure small masses (category c / 51-75% glandular tissue). Current study was also evaluated with a Computer Aided Detection (CAD) system. No significant masses, calcifications, or other findings are seen in either breast. There has been no significant interval change. IMPRESSION: NEGATIVE There is no mammographic evidence of malignancy. A 1 year screening mammogram is recommended. Based on the Tyrer Cuzick model (a risk assessment model) the patient's lifetime risk is 10.6% and her 10 year risk is 1.8%. According to the ACR, ACS, and NCCN guidelines, an annual breast MRI exam along with mammogram is recommended if the patient's lifetime risk is 20% or greater. This exam was interpreted at Station ID: [id number]. NOTE: For mammograms, a report in lay terms will be sent to the patient. Approximately 15% of breast malignancies will not be visualized mammographically. In the management of a palpable breast mass, a negative mammogram must not discourage biopsy of a clinically suspicious lesion. Electronically Signed By: Annamarie howard/betsy:08/21/2023 14:40:27 letter sent: Normal Exam ACR BI-RADS Category 1: Negative 3341F
== END ==
LOC: MAMMO 07:29
PROVIDERS: PCP Family Medicine; Referring Provider Family Medicine; Visit Provider Family Medicine
DX: Z12.31 Encounter for screening mammogram for malignant neoplasm of breast (principal); R92.333 Mammographic heterogeneous density, bilateral breasts
CPT/HCPCS: 77063; 77067

== ENCOUNTER → 2023-09-14 07:38 | Outpatient (CLI) | payer OTHER, SELFPAY ==
[2023-09-14 08:47] LABS: Hemoglobin A1C% w Est Avg Glu 5.6 % (4.0-6.0)
[2023-09-14 08:59] LABS: Alanine Aminotransferase 48 IU/L (<35); Albumin 4.4 g/dL (3.5-5.0); Albumin Globulin Ratio 1.4 (1.0-2.8); Alkaline Phosphatase 109 U/L (38-126); Aspartate Aminotransferase 43 IU/L (14-36); BUN Creatinine Ratio 25.5 (6-22); Bilirubin Total 0.4 mg/dL (0.2-1.3); Blood Urea Nitrogen 12 mg/dL (7-17); Calcium 9.3 mg/dL (8.4-10.2); Carbon Dioxide 23 mmol/L (22-32); Chloride 106 mmol/L (98-107); Estimated Glomerular Filt Rate > 60 mL/min (>60); Globulin 3.2 g/dL (1.7-4.1); Glucose 86 mg/dL (70-100); HEMOLYSIS < 15 (0-50); Potassium 4.1 mmol/L (3.4-5.1); Sodium 139 mmol/L (137-145); Total Protein 7.6 g/dL (6.3-8.2)
[2023-09-14 09:26] LABS: TSH w/ Reflex to FT4 2.55 uIU/mL (0.47-4.68)
== END ==
PROVIDERS: PCP Family Medicine; Referring Provider Family Medicine; Visit Provider Family Medicine
DX: E11.69 Type 2 diabetes mellitus with other specified complication (principal); E66.9 Obesity, unspecified; E03.9 Hypothyroidism, unspecified
CPT/HCPCS: 36415; 80053; 83036; 84443

== ENCOUNTER → 2023-12-30 07:31 | Outpatient (CLI) | payer OTHER, SELFPAY ==
[2023-12-30 08:21] LABS: Hemoglobin A1C% w Est Avg Glu 5.4 % (4.0-6.0)
[2023-12-30 08:41] LABS: Alanine Aminotransferase 39 IU/L (<35); Albumin 4.3 g/dL (3.5-5.0); Albumin Globulin Ratio 1.5 (1.0-2.8); Alkaline Phosphatase 114 U/L (38-126); Aspartate Aminotransferase 32 IU/L (14-36); Bilirubin Total 0.4 mg/dL (0.2-1.3); Blood Urea Nitrogen 17 mg/dL (7-17); Calcium 8.8 mg/dL (8.4-10.2); Carbon Dioxide 23 mmol/L (22-32); Chloride 107 mmol/L (98-107); Estimated Glomerular Filt Rate > 60 mL/min (>60); Globulin 2.9 g/dL (1.7-4.1); Glucose 115 mg/dL (70-100); HEMOLYSIS < 15 (0-50); Potassium 4.3 mmol/L (3.4-5.1); Sodium 140 mmol/L (137-145); Total Protein 7.2 g/dL (6.3-8.2)
== END ==
PROVIDERS: PCP Family Medicine; Referring Provider Family Medicine; Visit Provider Family Medicine
DX: E66.9 Obesity, unspecified (principal); E11.69 Type 2 diabetes mellitus with other specified complication; R74.8 Abnormal levels of other serum enzymes
CPT/HCPCS: 36415; 80053; 83036

== ENCOUNTER → 2024-03-18 18:07 | Outpatient (CLI) | payer OTHER, SELFPAY | PROVIDERS: PCP Family Medicine; Referring Provider Internal Medicine; Visit Provider Internal Medicine | DX: Z23 Encounter for immunization (principal) | CPT/HCPCS: 90471; 90656 ==

== ENCOUNTER → 2024-03-30 07:32 | Outpatient (CLI) | payer OTHER, SELFPAY ==
[2024-03-30 08:24] LABS: Hemoglobin A1C% w Est Avg Glu 5.5 % (4.0-6.0)
[2024-03-30 08:35] LABS: Alanine Aminotransferase 47 IU/L (<35); Albumin 4.5 g/dL (3.5-5.0); Albumin Globulin Ratio 1.6 (1.0-2.8); Alkaline Phosphatase 117 U/L (38-126); Aspartate Aminotransferase 31 IU/L (14-36); BUN Creatinine Ratio 21.3 (6-22); Bilirubin Total 0.4 mg/dL (0.2-1.3); Blood Urea Nitrogen 10 mg/dL (7-17); Calcium 9.3 mg/dL (8.4-10.2); Carbon Dioxide 24 mmol/L (22-32); Chloride 106 mmol/L (98-107); Estimated Glomerular Filt Rate > 60 mL/min (>60); Globulin 2.9 g/dL (1.7-4.1); Glucose 81 mg/dL (70-100); HEMOLYSIS < 15 (0-50); Potassium 4.2 mmol/L (3.4-5.1); Sodium 139 mmol/L (137-145); Total Protein 7.4 g/dL (6.3-8.2)
== END ==
PROVIDERS: PCP Family Medicine; Referring Provider Family Medicine; Visit Provider Family Medicine
DX: E11.69 Type 2 diabetes mellitus with other specified complication (principal); E66.9 Obesity, unspecified; E03.9 Hypothyroidism, unspecified
CPT/HCPCS: 36415; 80053; 83036

== ENCOUNTER → 2024-04-13 14:44 | Outpatient (CLI) | payer OTHER, SELFPAY ==
[2024-04-13 15:04] LABS: Appearance Urine UA CLEAR; Bilirubin Urine UA NEGATIVE (NEGATIVE); Color Urine UA YELLOW; Glucose Urine UA NEGATIVE (Negative); Ketones Urine UA TRACE (NEGATIVE); Leukocyte Esterase Urine UA TRACE (NEGATIVE); Nitrite Urine UA NEGATIVE (Negative); Occult Blood Urine UA NEGATIVE (Negative); Protein Urine UA TRACE (Negative); Specific Gravity Urine UA >=1.030 (1.000-1.035); Urobilinogen Urine UA 0.2 E.U./dL (0.2)
[2024-04-13 15:24] LABS: Bacteria Urine Few (2-10); RBC Urine None Seen (0-5/HPF); Squamous Epithelial Cell Urine 5-10 /HPF (0-5/HPF); Urine Volume 10mL (spun); WBC Urine 5-10/HPF (0-5/HPF)
[2024-04-13 15:25] LABS: Mucus Urine 1+ (Negative)
[2024-04-13 15:27] LABS: Culture Indicated Urine Specimen Cultured
== END ==
PROVIDERS: PCP Family Medicine; Referring Provider Family Medicine; Visit Provider Family Medicine
DX: R30.0 Dysuria (principal)
CPT/HCPCS: 81001; 87086

== ENCOUNTER → 2024-06-10 07:28 | Outpatient (CLI) | payer OTHER, SELFPAY ==
[2024-06-10 08:18] LABS: Add Manual Diff / Slide Review NO; Basophils Absolute Auto 0 /uL (0-100); Basophils Percent Auto 0.4 % (0-2); Eosinophils Absolute Auto 100 /uL (0-450); Eosinophils Percent Auto 1.1 % (2-4); Hemoglobin 12.1 g/dL (12.0-16.0); Lymphocytes Absolute Auto 3700 /uL (1100-4500); Lymphocytes Percent Auto 36.3 % (25-40); Mean Corpuscular HGB Conc 32.8 % (30-36); Mean Corpuscular Hemoglobin 27.3 PG (26-34); Mean Corpuscular Volume 83.2 fL (80-100); Monocytes Absolute Auto 500 /uL (0-900); Monocytes Percent Auto 4.6 % (3-14); Neutrophils Absolute Auto 5900 /uL (1500-7000); Neutrophils Percent Auto 57.6 % (50-75); Platelet Count 335 X10^3/uL (150-400); Red Blood Cell Count 4.44 X10^6/uL (4.0-5.2); Red Cell Distribution Width 14.8 % (11.6-14.8); White Blood Cell Count 10.3 X10^3/uL (4.5-11.0)
[2024-06-10 08:26] LABS: Hemoglobin A1C% w Est Avg Glu 5.4 % (4.0-6.0)
[2024-06-10 08:35] LABS: Alanine Aminotransferase 62 IU/L (<35); Albumin 4.3 g/dL (3.5-5.0); Albumin Globulin Ratio 1.4 (1.0-2.8); Alkaline Phosphatase 136 U/L (38-126); Aspartate Aminotransferase 37 IU/L (14-36); BUN Creatinine Ratio 26.4 (6-22); Bilirubin Total 0.3 mg/dL (0.2-1.3); Blood Urea Nitrogen 14 mg/dL (7-17); Calcium 9.3 mg/dL (8.4-10.2); Carbon Dioxide 24 mmol/L (22-32); Chloride 104 mmol/L (98-107); Cholesterol 164 mg/dL (140-199); Estimated Glomerular Filt Rate > 60 mL/min (>60); Globulin 3.1 g/dL (1.7-4.1); Glucose 95 mg/dL (70-100); HDL Cholesterol 50 mg/dL (40-60); HEMOLYSIS < 15 (0-50); LDL Cholesterol Calculated 74 mg/dL (<100); Potassium 4.1 mmol/L (3.4-5.1); Sodium 139 mmol/L (137-145); Total Protein 7.4 g/dL (6.3-8.2); Triglycerides 200 mg/dL (35-150)
[2024-06-10 08:44] LABS: Creatinine Urine Random 155.23 mg/dL
[2024-06-10 08:51] LABS: Microalbumin Urine Random 9.1 mg/dL (0-1.6)
[2024-06-10 09:02] LABS: TSH w/ Reflex to FT4 2.51 uIU/mL (0.47-4.68)
== END ==
PROVIDERS: PCP Family Medicine; Referring Provider Family Medicine; Visit Provider Family Medicine
DX: E11.69 Type 2 diabetes mellitus with other specified complication (principal); E66.9 Obesity, unspecified; E03.9 Hypothyroidism, unspecified; R74.8 Abnormal levels of other serum enzymes
CPT/HCPCS: 36415; 80053; 80061; 82043; 82570; 83036; 84443; 85025

== ENCOUNTER → 2024-06-27 11:16 | Outpatient (CLI) | payer OTHER, SELFPAY ==
[2024-06-27 11:58] LABS: Appearance Urine UA SL CLOUDY; Bilirubin Urine UA NEGATIVE (NEGATIVE); Color Urine UA YELLOW; Glucose Urine UA NEGATIVE (Negative); Ketones Urine UA NEGATIVE (NEGATIVE); Leukocyte Esterase Urine UA TRACE (NEGATIVE); Nitrite Urine UA NEGATIVE (Negative); Occult Blood Urine UA TRACE-INTACT (Negative); Protein Urine UA 1+ (Negative); Urobilinogen Urine UA 0.2 E.U./dL (0.2)
[2024-06-27 12:03] LABS: Urine Volume 10mL (spun)
[2024-06-27 12:05] LABS: Bacteria Urine None Seen; Culture Indicated Urine Specimen Cultured; RBC Urine None Seen (0-5/HPF); Squamous Epithelial Cell Urine 5-10 /HPF (0-5/HPF); WBC Urine 1-5/HPF (0-5/HPF)
== END ==
PROVIDERS: PCP Family Medicine; Referring Provider Family Medicine; Visit Provider Family Medicine
DX: R30.0 Dysuria (principal)
CPT/HCPCS: 81001; 87086

== ENCOUNTER → 2024-07-06 16:03 | Outpatient (CLI) | payer OTHER, SELFPAY ==
[2024-07-08 14:39] LABS: Candida species Negative (Negative); Gardnerella vaginalis Positive (Negative); Trichomoas vaginalis Negative (Negative)
== END ==
PROVIDERS: PCP Family Medicine; Visit Provider Specialist
DX: N90.89 Other specified noninflammatory disorders of vulva and perineum (principal); N89.8 Other specified noninflammatory disorders of vagina
CPT/HCPCS: 87255; 87480; 87510; 87660

== ENCOUNTER → 2024-07-16 08:12 | Outpatient (CLI) | payer OTHER, SELFPAY ==
--- NOTE | 2024-07-16 08:14 | DI.US.S_ITS ---
PROCEDURE: US PELVIC COMPLETE INDICATIONS: DUB; HX FIBROIDS TECHNIQUE: Real-time scanning was performed of the pelvic organs, with image documentation. Additional endovaginal scanning was necessary due to incomplete visualization of the adnexal and endometrial structures by transabdominal scanning. COMPARISON: [facility], US, US PELVIC COMPLETE, 08/23/2021, 7:16. FINDINGS: Uterus: 8.5 x 7.5 x 6.6 cm. Endometrium is within normal limits at 7 mm. Multiple intramural and subserosal fibroids, stable from prior imaging, for example in the right posterior region measuring 2.4 x 2.1 cm. Mid anterior region measures 4.5 x 4.2 cm. Mid posterior region measures 2.2 x 2.1 cm. Ovaries: Not visualized. Other: No pathologic free abdominal or pelvic fluid. IMPRESSION: By ultrasound, uterine fibroids are stable. If further anatomic delineation is desired, MRI gynecologic protocol could be obtained. No discrete endometrial abnormality. Ovaries were not well seen. Dictated by: Paolo Marinelli M.D. on 07/16/2024 at 13:38 Approved by: Paolo Marinelli M.D. on 07/16/2024 at 13:39
== END ==
PROVIDERS: PCP Family Medicine; Referring Provider Obstetrics & Gynecology; Visit Provider Obstetrics & Gynecology
DX: N92.6 Irregular menstruation, unspecified (principal); D25.1 Intramural leiomyoma of uterus; D25.2 Subserosal leiomyoma of uterus
CPT/HCPCS: 76830; 76856

== ENCOUNTER 2024-08-15 09:56 | Day surgery (SDC) | payer OTHER, SELFPAY ==
[2024-08-15] VITALS (7 sets, daily range): BP systolic 109–126; BP diastolic 60–83; PULSE 92–108; RESP 12–16; TEMP 36.7–36.8; O2SAT 89–97
--- NOTE | 2024-08-15 | DI.RAD.S_ITS ---
PROCEDURE: XR CHEST 1V INDICATIONS: possible aspiration TECHNIQUE: One view of the chest was acquired. COMPARISON: None. FINDINGS: Surgical changes and devices: None. Lungs and pleura: Mild pulmonary vascular congestion. No focal infiltrate. No pleural effusions or pneumothorax. Mediastinum: Mediastinal contours appear normal. Heart size is enlarged. Bones and chest wall: No suspicious bony lesions. Overlying soft tissues appear unremarkable. IMPRESSION: Cardiomegaly and mild congestion. No focal infiltrate, pleural effusion or pneumothorax. Dictated by: Juve Mustafa M.D. on 08/15/2024 at 13:06 Approved by: Juve Mustafa M.D. on 08/15/2024 at 13:07
[2024-08-15] MEDS: LACTATED RINGERS 1,000 ML 42 ML IV (10:55)
--- NOTE | 2024-08-15 11:51 | PM.HP.IH.1 ---
History of Present Illness History of Present Illness Date Patient Seen: 08/15/24 Time Patient Seen: 11:51 Chief complaint: SDC Narrative: 44-year-old white female presents for initial colon screening. She has a new diagnosis of vulvar cancer as of a few weeks ago. She is due to undergo chemo and radiation. [facility] Medical History (Updated 08/15/24 @ 11:53 by Marco Antonio Flynn MD) Colon cancer screening (08/15/24) Back strain Chronic back pain Excessive daytime sleepiness Diabetes mellitus type 2 in obese Hyperglycemia Hypothyroidism Surgical History Anesthesia History of oral surgery (~1979) History of surgery on arm (~2014) History of left knee surgery (~2014) Family History Mother Diabetes mellitus Hypertension Hyperlipidemia Hyperthyroidism Sister Diabetes mellitus Hyperlipidemia Sister Hyperlipidemia Diabetes mellitus Grandfather Diabetes mellitus Hyperlipidemia Hypertension Grandmother Diabetes mellitus Hypertension Hyperlipidemia Social History Smoking Status: Never smoker Meds Home Medications and Allergies Home Medications Medication Instructions Recorded Confirmed Type atorvastatin 40 mg tablet (Lipitor) 40 mg PO BEDTIME #90 tabs 01/12/24 07/06/24 Rx losartan 100 mg tablet 100 mg PO DAILY #90 tabs 01/12/24 08/15/24 Rx semaglutide 2 mg/dose (8 mg/3 mL) 2 mg (0.75 mL) SUBCUT QWEEK #3 mL 05/26/24 08/15/24 Rx subcutaneous pen injector levothyroxine 88 mcg tablet 88 mcg PO DAILY hypothroidism #90 06/16/24 07/06/24 Rx tabs nitrofurantoin macrocrystal 100 mg 100 mg PO BID #10 caps 06/28/24 07/06/24 Rx capsule metformin 1,000 mg tablet 1,000 mg PO BID #180 tabs 07/04/24 08/15/24 Rx hydrocodone 5 mg-acetaminophen 325 1 tab PO Q4-6H PRN pain #20 tabs 07/07/24 Rx mg tablet hydroxyzine HCl 25 mg tablet 25 mg PO BID PRN itching #30 tabs 07/12/24 Rx sodium,potassium,mag sulfates 17.5 See Rx Instructions PO .COMPLEX 07/15/24 Rx gram-3.13 gram-1.6 gram oral soln #354 mL (Suprep Bowel Prep Kit) oxycodone 5 mg tablet 5 mg PO Q6H PRN pain #14 tabs 07/27/24 08/15/24 Rx lidocaine 5 % topical ointment 1 applic topical DAILY #30 grams 08/05/24 Rx lidocaine HCl 2 % topical gel 1 applic topical BID PRN pain #15 08/05/24 Rx grams Allergies Allergy/AdvReac Type Severity Reaction Status Date / Time No Known Drug Allergies Allergy Verified 08/15/24 10:57 Exam Vital Signs (past 8 hours): - 08/15/24 10:58 Temperature 98.1 F Pulse Rate 92 H Respiratory Rate 16 Blood Pressure 119/83 Pulse Oximetry 96 Oxygen Delivery Method Room Air Oxygen Delivery Method Room Air Narrative Exam Narrative: Gen: NAD, sitting comfortably in bed, appears well HEENT: Sclera are anicteric, head is normocephalic and atraumatic, trachea is midline. CV: RRR, no JVD Resp: clear to auscultation bilaterally, equal chest wall movement bilaterally Abd: soft, nontender, normoactive bowel sounds Ext: no edema, full range of motion Neuro: Cranial nerves II-XII grossly intact, no focal deficits Skin: No erythema or ecchymosis Assessment & Plan Assessment and plan (1) Colon cancer screening: Status: Acute Time-Based Coding :: [TOTAL MINUTES] spent with patient and on the chart (including review of chart, obtaining history, exam, reviewing outside data, placing orders, documenting exam and treatment plan, and counseling patient) on [DATE]. [employer] Document charge(s): No
--- NOTE | 2024-08-15 12:14 | P.OP.COLON_ITS ---
Operative Date/Time/Diagnoses Date of procedure: 08/15/24 Time of procedure: 12:14 Pre-op diagnosis: Colon screening Post-op diagnosis: same Procedure & Clinicians Study performed: Colonoscopy Same procedure as scheduled: Yes Indications: Colon screening Surgeon: Marco Antonio Flynn Procedure Notes SCOAP/Timeout: performed Procedure in detail: Time-out was performed. Mac was induced. Patient was placed in left lateral d ecubitus position. The perineum was inspected without any gross abnormality. Lubricated pediatric colonoscope was inserted and advanced to the cecum. The terminal ileum was intubated. The colonoscope was withdrawn slowly inspecting the circumference of the colon. Very small polyps may have been missed, prep quality was adequate. Retroflexed view of the rectum showed small, non prolapsed nonbleeding internal hemorrhoids. The scope was withdrawn the patient was taken to PACU in good condition. Scope withdrawal time: 6 Specimen(s): none sent Complications: none Impression: normal colon Post-procedure Recommendations: Colonoscopy in 10 years Follow up: as needed Disposition: PACU
[2024-08-15] MEDS: ALBUTEROL 2.5 MG/3 ML NEB (ADULT) INH (12:36)
== END 2024-08-15 13:10 | disposition home or self-care (01) ==
PROVIDERS: PCP Family Medicine; Referring Provider Surgery; Visit Provider Surgery
PROC: 0DJD8ZZ Inspection of Lower Intestinal Tract, Via Natural or Artificial Opening Endoscopic (ICD-10-PCS; CPT 45378; principal; 2024-08-15 11:15)
DX: C51.9 Malignant neoplasm of vulva, unspecified (principal); Z12.11 Encounter for screening for malignant neoplasm of colon; E11.69 Type 2 diabetes mellitus with other specified complication; E66.9 Obesity, unspecified; E03.9 Hypothyroidism, unspecified; Z79.84 Long term (current) use of oral hypoglycemic drugs; K64.8 Other hemorrhoids
CPT/HCPCS: 45378; 71045; J2704; J7613

== ENCOUNTER → 2024-08-22 07:02 | Outpatient (CLI) | payer OTHER, SELFPAY ==
--- NOTE | 2024-08-22 07:03 | DI.MG.S_ITS ---
MM screening mammo BI: 08/22/2024. BI-RADS: 1 CLINICAL: 44-year old female for bilateral screening mammogram. Tyrer-Cuzick lifetime risk of 14.3%. No personal or first-degree family history of breast cancer. PRIOR EXAMS 08/21/2023, 08/11/2022, 08/07/2021. MAMMOGRAPHY TECHNIQUE: 2D and 3D (tomosynthesis) digital mammographic views obtained, with additional images as needed for full coverage. Current study was also evaluated with a Computer Aided Detection (CAD) system. DENSITY C. The breasts are heterogeneously dense, which may obscure small masses. MAMMOGRAPHY FINDINGS Bilateral: No suspicious mass, asymmetry, microcalcification, or other abnormality seen. IMPRESSION: * No evidence of malignancy. RECOMMENDATIONS Bilateral * Annual screening mammography. OVERALL ASSESSMENT CATEGORY BI-RADS-1: Negative. The [employer] recommends annual screening mammography beginning at age 40 for women with average risk of breast cancer. ELECTRONICALLY SIGNED: Loren Montes M.D. on 08/22/2024 at 06:25:49 PM PT Interpreting Station ID: [id number]
== END ==
PROVIDERS: PCP Family Medicine; Referring Provider Family Medicine; Visit Provider Family Medicine
DX: Z12.31 Encounter for screening mammogram for malignant neoplasm of breast (principal); R92.333 Mammographic heterogeneous density, bilateral breasts
CPT/HCPCS: 77063; 77067

== ENCOUNTER → 2024-08-26 06:36 | Outpatient (CLI) | payer OTHER, SELFPAY ==
[2024-08-26 07:51] LABS: Creatinine Urine Random 309.07 mg/dL
[2024-08-26 07:52] LABS: Hemoglobin A1C% w Est Avg Glu 5.3 % (4.0-6.0)
[2024-08-26 07:53] LABS: Alanine Aminotransferase 49 IU/L (<35); Albumin 4.7 g/dL (3.5-5.0); Albumin Globulin Ratio 1.5 (1.0-2.8); Alkaline Phosphatase 118 U/L (38-126); Aspartate Aminotransferase 38 IU/L (14-36); BUN Creatinine Ratio 30.6 (6-22); Bilirubin Total 0.6 mg/dL (0.2-1.3); Blood Urea Nitrogen 15 mg/dL (7-17); Carbon Dioxide 24 mmol/L (22-32); Chloride 104 mmol/L (98-107); Cholesterol 141 mg/dL (140-199); Estimated Glomerular Filt Rate > 60 mL/min (>60); Globulin 3.1 g/dL (1.7-4.1); Glucose 115 mg/dL (70-100); HDL Cholesterol 57 mg/dL (40-60); HEMOLYSIS < 15 (0-50); LDL Cholesterol Calculated 66 mg/dL (<100); Potassium 4.4 mmol/L (3.4-5.1); Sodium 141 mmol/L (137-145); Total Protein 7.8 g/dL (6.3-8.2); Triglycerides 88 mg/dL (35-150)
[2024-08-26 08:10] LABS: Microalbumin Urine Random 28.9 mg/dL (0-1.6)
== END ==
PROVIDERS: PCP Family Medicine; Referring Provider Family Medicine; Visit Provider Family Medicine
DX: E11.69 Type 2 diabetes mellitus with other specified complication (principal); E66.9 Obesity, unspecified; E03.9 Hypothyroidism, unspecified; Z00.00 Encounter for general adult medical examination without abnormal findings; R74.8 Abnormal levels of other serum enzymes
CPT/HCPCS: 36415; 80053; 80061; 82043; 82570; 83036

== ENCOUNTER 2024-10-10 16:05 | Emergency (ER) | payer OTHER, SELFPAY ==
[2024-10-10] VITALS (12 sets, daily range): BP systolic 130–149; BP diastolic 62–74; PULSE 70–105; RESP 14–23; TEMP 36.3; O2SAT 95–98; BMI 37.3
--- NOTE | 2024-10-10 16:20 | DI.RAD.S_ITS ---
PROCEDURE: XR CHEST 1V INDICATIONS: Chest Pain TECHNIQUE: One view of the chest was acquired. COMPARISON: [facility], CR, XR CHEST 1V, 08/15/2024, 12:27. FINDINGS: Surgical changes and devices: Right chest wall Port-A-Cath tip is in SVC. Lungs and pleura: Left basilar scarring/atelectasis is seen. No definite focal infiltrate. No pleural effusions or pneumothorax. Mediastinum: Mediastinal contours appear normal. Heart size is mildly enlarged. Bones and chest wall: No suspicious bony lesions. Overlying soft tissues appear unremarkable. IMPRESSION: Left basilar atelectasis. No definite focal infiltrate. No pleural effusion or pneumothorax. Dictated by: Juve Mustafa M.D. on 10/10/2024 at 16:56 Approved by: Juve Mustafa M.D. on 10/10/2024 at 16:57
--- NOTE | 2024-10-10 16:20 | EKG_ITS ---
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
--- NOTE | 2024-10-10 18:34 | ED_ITS ---
HPI - Chest Pain General Chief Complaint: Chest Pain Stated Complaint: chemo today, c/o chest heaviness Time Seen by Provider: 10/10/24 18:34 Source: patient Mode of arrival: Ambulatory History of Present Illness HPI narrative: 44-year-old female pmh of htn, hld, dm, and history of vulvar cancer currently on 3rd treatment of chemo and daily radiation 5 days a [address] on [address] back from from [place] developed chest tightness along with shortness of breath while at rest and continues to feel tightness in her chest and lower back. She denies leg pain or swelling diaphoresis nausea vomiting or any radiating symptoms at this time. Other than what is stated 14 point review of system is negative. Related Data Previous Rx's Medication Instructions Recorded atorvastatin 40 mg tablet (Lipitor) 40 mg PO BEDTIME #90 tabs 01/12/24 losartan 100 mg tablet 100 mg PO DAILY #90 tabs 01/12/24 levothyroxine 88 mcg tablet 88 mcg PO DAILY hypothroidism #90 06/16/24 tabs metformin 1,000 mg tablet 1,000 mg PO BID #180 tabs 07/04/24 hydrocodone 5 mg-acetaminophen 325 1 tab PO Q4-6H PRN pain #20 tabs 07/07/24 mg tablet oxycodone 5 mg tablet 5 mg PO Q6H PRN pain #14 tabs 07/27/24 semaglutide 2 mg/dose (8 mg/3 mL) 2 mg (0.75 mL) SUBCUT QWEEK #3 mL 09/28/24 subcutaneous pen injector lidocaine 5 % topical ointment 1 applic topical DAILY #30 grams 09/29/24 albuterol sulfate 90 mcg/actuation 2 inh inhalation Q4-6H PRN 10/10/24 breath activated powder inhaler shortness of breath or wheezing #1 ea Allergies Allergy/AdvReac Type Severity Reaction Status Date / Time No Known Drug Allergies Allergy Verified 10/10/24 16:17 Review of Systems Review of Systems ROS Unobtainable: All systems reviewed & are unremarkable except as noted in HPI and below Patient History Medical History (Updated 10/10/24 @ 22:17 by Rangel Mcallister DO) Colon cancer screening (08/15/24) Back strain Chronic back pain Excessive daytime sleepiness Diabetes mellitus type 2 in obese Hyperglycemia Hypothyroidism Surgical History Anesthesia History of oral surgery (~1979) History of surgery on arm (~2014) History of left knee surgery (~2014) Family History Mother Diabetes mellitus Hypertension Hyperlipidemia Hyperthyroidism Sister Diabetes mellitus Hyperlipidemia Sister Hyperlipidemia Diabetes mellitus Grandfather Diabetes mellitus Hyperlipidemia Hypertension Grandmother Diabetes mellitus Hypertension Hyperlipidemia Exam Narrative Exam Narrative: GENERAL: [44] year old patient appears stated age. Well-developed patient, in mild distress. HEAD: Atraumatic. Normocephalic. EYES: Pupils equal round and reactive. Extraocular motions intact. No scleral icterus. No injection or drainage. NECK: Trachea midline. Non tender CARDIOVASCULAR: Regular rate and rhythm without murmurs, gallops, or rubs. RESPIRATORY: Clear to auscultation. Breath sounds equal bilaterally. No wheezes, rales, or rhonchi. GASTROINTESTINAL: Abdomen soft, non-tender, nondistended. EXTREMITIES: No edema or joint tenderness. BACK: Nontender without deformity or crepitance. No flank tenderness. NEURO: AOx3. SKIN: No rash or erythema of visible areas Initial Vital Signs Initial Vital Signs: Vital Signs Temperature 97.4 F L 10/10/24 16:17 Pulse Rate 82 10/10/24 16:17 Respiratory Rate 17 10/10/24 16:17 Blood Pressure 137/74 10/10/24 16:17 Pulse Oximetry 97 10/10/24 16:17 Oxygen Delivery Method Room Air 10/10/24 16:17 Course Orders Ordered: ED Orders 10/10/24 16:20 XR chest 1V Stat EKG-12 Lead Stat RT Consult Eval and Treat NOW 10/10/24 18:55 Complete Blood Count AUTO DIFF Stat Comprehensive Metabolic Panel Stat Lactate (Lactic Acid) Stat Lipase Stat Magnesium Stat NT-proBNP (BNP-Adult 18+) Stat PTT Partial Thromboplastin [place] Stat Prothrombin Time INR Stat Troponin & CK Cardiac Panel Stat 10/10/24 19:24 CT angio chest PE protocol Stat 10/10/24 21:26 Troponin I Stat Discontinued Medications Albuterol/Ipratropium (Albuterol/Ipratropium 3 Ml Ampul) 3 ml INH NOW ONE Stop: 10/10/24 20:52 Last Admin: 05/05/25 21:15 Dose: 3 ml Documented By: ALIVIA Aspirin (Aspirin 81 Mg Chew Tab) 324 mg PO NOW ONE Stop: 10/10/24 16:21 Last Admin: 10/10/24 18:24 Dose: Not Given Documented By: Vital Signs Vital signs: Vital Signs - 8 hr 10/10/24 16:17 10/10/24 18:13 10/10/24 18:13 Temperature 97.4 F L Pulse Rate 82 84 Respiratory Rate 17 Blood Pressure 137/74 139/71 Pulse Oximetry 97 96 Oxygen Delivery Method Room Air Oxygen Flow Rate Fraction of Inspired Oxygen 10/10/24 18:30 10/10/24 18:30 10/10/24 19:00 Temperature Pulse Rate 76 77 Respiratory Rate 18 Blood Pressure 130/67 Pulse Oximetry 97 96 Oxygen Delivery Method Room Air Oxygen Flow Rate Fraction of Inspired Oxygen 10/10/24 19:00 10/10/24 19:30 10/10/24 19:30 Temperature Pulse Rate 75 77 Respiratory Rate 18 Blood Pressure 149/72 H 139/72 Pulse Oximetry 96 95 Oxygen Delivery Method Room Air Oxygen Flow Rate Fraction of Inspired Oxygen 10/10/24 21:15 Temperature Pulse Rate 85 Respiratory Rate 18 Blood Pressure Pulse Oximetry 98 Oxygen Delivery Method Room Air Oxygen Flow Rate 0 Fraction of Inspired Oxygen 21 MDM - Chest Pain Lab Data 10/10/24 18:55 10/10/24 18:55 Labs: Lab Results 10/10/24 10/10/24 Range/Units 18:55 21:26 WBC 5.4 (4.5-11.0) X10^3/uL RBC 4.16 (4.0-5.2) X10^6/uL Hgb 10.3 L (12.0-16.0) g/dL Hct 32.5 L (36-46) % MCV 78.1 L (80-100) fL MCH 24.8 L (26-34) PG MCHC 31.7 (30-36) % RDW 14.9 H (11.6-14.8) % Plt Count 164 (150-400) X10^3/uL Neut % (Auto) 93.6 H (50-75) % Lymph % (Auto) 5.6 L (25-40) % [place] % (Auto) 0.5 L (3-14) % Eos % (Auto) 0.1 L (2-4) % Baso % (Auto) 0.2 (0-2) % Neut # (Auto) 5100 (1182-8285) /uL Lymph # (Auto) 300 L (8224-6113) /uL [place] # (Auto) 0 (0-900) /uL Eos # (Auto) 0 (0-450) /uL Baso # (Auto) 0 (0-100) /uL PT 10.5 (9.4-12.5) SECONDS INR 0.9 (0.9-1.3) APTT 35 (25.1-36.5) SECONDS Sodium 138 (137-145) mmol/L Potassium 4.9 (3.4-5.1) mmol/L Chloride 106 (98-107) mmol/L Carbon Dioxide 22 (22-32) mmol/L BUN 15 (7-17) mg/dL Creatinine 0.60 (0.52-1.04) mg/dL Estimated GFR > 60 (>60) mL/min BUN/Creatinine Ratio 25.0 H (6-22) Glucose 147 H (70-99) mg/dL Lactate 2.4 H 2.4 H (0.7-2.1) mmol/L Calcium 9.1 (8.4-10.2) mg/dL Magnesium 2.0 (1.6-2.3) mg/dL Total Bilirubin 0.5 (0.2-1.3) mg/dL AST 40 H (14-36) IU/L ALT 56 H (<35) IU/L Alkaline Phosphatase 109 (38-126) U/L Total Creatine Kinase 29 L (30-135) U/L Troponin I < 0.012 < 0.012 (0.01-0.034) ng/mL NT-Pro-B Natriuret Pep 46 (<125) pg/mL Total Protein 7.8 (6.3-8.2) g/dL Albumin 4.5 (3.5-5.0) g/dL Globulin 3.3 (1.7-4.1) g/dL Albumin/Globulin Ratio 1.4 (1.0-2.8) Lipase 247 (23-300) U/L Imaging Data Chest x-ray: Radiologist's Impression: [address] [address] XRay Report Signed Patient: Zayda Hair MR#: [id number] : 1980 Acct:[id number] Age/Sex: 44 / F Date of Service: 10/10/24 Loc: ED Accession Number: [id number] Procedure: XR chest 1V Ordering Provider: Georgia Gordon D.O. PROCEDURE: XR CHEST 1V INDICATIONS: Chest Pain TECHNIQUE: One view of the chest was acquired. COMPARISON: [facility], XR CHEST 1V, 08/15/2024, 12:27. FINDINGS: Surgical changes and devices: Right chest wall Port-A-Cath tip is in SVC. Lungs and pleura: Left basilar scarring/atelectasis is seen. No definite focal infiltrate. No pleural effusions or pneumothorax. Mediastinum: Mediastinal contours appear normal. Heart size is mildly enlarged. Bones and chest wall: No suspicious bony lesions. Overlying soft tissues appear unremarkable. IMPRESSION: Left basilar atelectasis. No definite focal infiltrate. No pleural effusion or pneumothorax. CT scan - chest: Radiologist's Impression: [place] [address] CT Scan Report Signed Patient: Zayda Hair MR#: [id number] : 1980 Acct:[id number] Age/Sex: 44 / F Date of Service: 10/10/24 Loc: ED Accession Number: [id number] Procedure: CT angio chest PE protocol Ordering Provider: Rangel Mcallister D.O. PROCEDURE: CT ANGIO CHEST PE PROTOCOL INDICATIONS: sob/chest tightness/ cancer TECHNIQUE: After the administration of intravenous contrast, 2 mm thick sections acquired from the pulmonary apices to the posterior costophrenic angles. 3-dimensional maximum intensity projection (MIP) coronal and sagittal reformats were then acquired through the thorax. For radiation dose reduction, the following was used: automated exposure control, adjustment of mA and/or kV according to patient size. COMPARISON: [facility], XR CHEST 1V, 10/10/2024, 16:22. FINDINGS: Image quality: Diagnostic Lungs and pleura: No dense airspace disease. No suspicious focal pulmonary nodule. No pleural effusions. 3 mm nodule is seen at the left lung apex, medial aspect image 5/53. This is probably calcified. Mediastinum, heart, and esophagus: No acute pulmonary embolism. A right port catheter is present, terminating in the right atrium. Normal heart size. Nonspecific mild wall thickening of the distal esophagus and possible trace hiatal hernia. No pathologic lymphadenopathy by size criteria. Chest wall and thyroid: Unremarkable Upper abdomen: Ill-defined central splenic lesion measuring 1.4 cm. Bones: No aggressive appearing osseous abnormality. IMPRESSION: No acute pulmonary embolism. No dense airspace disease or pleural effusion. Indeterminate central splenic lesion measuring 1.4 cm. Other findings above. Consider dedicated oncologic surveillance imaging given reported malignancy history. MDM Narrative Medical decision making narrative: All lab work vital signs nurse triage note medication list and previous ER visits reviewed including all imaging studies. Chest x-ray showed left basilar atelectasis but no definite focal infiltrate no pleural effusion or pneumothorax. CTA showed no acute pulmonary embolism no dense airspace disease or pleural effusion but indeterminate central lesion in the spleen measuring 1.4cm. Two sets troponins were negative, white count was normal lactic acid was 2.4. Differential diagnosis includes PE, pneumonia, pneumothorax, sepsis, viral pathology. Will discharge patient home on inhaler at this time and follow up with PCP later this week regarding splenic lesion. Discharge Plan Departure Patient Disposition: Home Clinical Impression: Chest tightness, Splenic lesion Instructions: DI for Chest Pain Prescriptions: New albuterol sulfate 90 mcg/actuation aerosol powdr breath activated 2 inh inhalation Q4-6H PRN (Reason: shortness of breath or wheezing) Qty: 1 0RF No Action atorvastatin [Lipitor] 40 mg tablet 40 mg PO BEDTIME Qty: 90 3RF losartan 100 mg tablet 100 mg PO DAILY Qty: 90 3RF metformin 1,000 mg tablet 1,000 mg PO BID Qty: 180 2RF hydrocodone-acetaminophen 5-325 mg tablet 1 tab PO Q4-6H PRN (Reason: pain) Qty: 20 0RF oxycodone 5 mg tablet 5 mg PO Q6H PRN (Reason: pain) Qty: 14 0RF semaglutide 2 mg/dose (8 mg/3 mL) pen injector 2 mg SUBCUT QWEEK Qty: 3 3RF lidocaine 5 % ointment 1 applic topical DAILY Qty: 30 0RF levothyroxine 88 mcg tablet 88 mcg PO DAILY Qty: 90 2RF Referrals: Garrison Hsu MD [Primary Care Provider] - Stand Alone Forms: Patient Portal/API/Survey
[2024-10-10 19:08] LABS: Add Manual Diff / Slide Review NO; Basophils Absolute Auto 0 /uL (0-100); Basophils Percent Auto 0.2 % (0-2); Eosinophils Absolute Auto 0 /uL (0-450); Eosinophils Percent Auto 0.1 % (2-4); Hematocrit 32.5 % (36-46); Hemoglobin 10.3 g/dL (12.0-16.0); Lymphocytes Absolute Auto 300 /uL (1100-4500); Lymphocytes Percent Auto 5.6 % (25-40); Mean Corpuscular HGB Conc 31.7 % (30-36); Mean Corpuscular Hemoglobin 24.8 PG (26-34); Mean Corpuscular Volume 78.1 fL (80-100); Monocytes Absolute Auto 0 /uL (0-900); Monocytes Percent Auto 0.5 % (3-14); Neutrophils Absolute Auto 5100 /uL (1500-7000); Neutrophils Percent Auto 93.6 % (50-75); Platelet Count 164 X10^3/uL (150-400); Red Blood Cell Count 4.16 X10^6/uL (4.0-5.2); Red Cell Distribution Width 14.9 % (11.6-14.8); White Blood Cell Count 5.4 X10^3/uL (4.5-11.0)
[2024-10-10 19:09] LABS: INR 0.9 (0.9-1.3); Prothrombin Time 10.5 SECONDS (9.4-12.5)
[2024-10-10 19:12] LABS: PTT Partial Thromboplastin Tim 35 SECONDS (25.1-36.5)
[2024-10-10 19:14] LABS: Lactate (Lactic Acid) 2.4 mmol/L (0.7-2.1)
[2024-10-10 19:15] LABS: Alanine Aminotransferase 56 IU/L (<35); Albumin 4.5 g/dL (3.5-5.0); Albumin Globulin Ratio 1.4 (1.0-2.8); Alkaline Phosphatase 109 U/L (38-126); Aspartate Aminotransferase 40 IU/L (14-36); Bilirubin Total 0.5 mg/dL (0.2-1.3); Blood Urea Nitrogen 15 mg/dL (7-17); Calcium 9.1 mg/dL (8.4-10.2); Carbon Dioxide 22 mmol/L (22-32); Chloride 106 mmol/L (98-107); Creatine Kinase 29 U/L (30-135); Estimated Glomerular Filt Rate > 60 mL/min (>60); Globulin 3.3 g/dL (1.7-4.1); Glucose 147 mg/dL (70-99); HEMOLYSIS < 15 (0-50); Lipase 247 U/L (23-300); Potassium 4.9 mmol/L (3.4-5.1); Sodium 138 mmol/L (137-145); Total Protein 7.8 g/dL (6.3-8.2)
--- NOTE | 2024-10-10 19:24 | DI.CT.S_ITS ---
PROCEDURE: CT ANGIO CHEST PE PROTOCOL INDICATIONS: sob/chest tightness/ cancer TECHNIQUE: After the administration of intravenous contrast, 2 mm thick sections acquired from the pulmonary apices to the posterior costophrenic angles. 3-dimensional maximum intensity projection (MIP) coronal and sagittal reformats were then acquired through the thorax. For radiation dose reduction, the following was used: automated exposure control, adjustment of mA and/or kV according to patient size. COMPARISON: [facility], CR, XR CHEST 1V, 10/10/2024, 16:22. FINDINGS: Image quality: Diagnostic Lungs and pleura: No dense airspace disease. No suspicious focal pulmonary nodule. No pleural effusions. 3 mm nodule is seen at the left lung apex, medial aspect image . This is probably calcified. Mediastinum, heart, and esophagus: No acute pulmonary embolism. A right port catheter is present, terminating in the right atrium. Normal heart size. Nonspecific mild wall thickening of the distal esophagus and possible trace hiatal hernia. No pathologic lymphadenopathy by size criteria. Chest wall and thyroid: Unremarkable Upper abdomen: Ill-defined central splenic lesion measuring 1.4 cm. Bones: No aggressive appearing osseous abnormality. IMPRESSION: No acute pulmonary embolism. No dense airspace disease or pleural effusion. Indeterminate central splenic lesion measuring 1.4 cm. Other findings above. Consider dedicated oncologic surveillance imaging given reported malignancy history. Dictated by: Paolo Marinelli M.D. on 10/10/2024 at 20:01 Approved by: Paolo Marinelli M.D. on 10/10/2024 at 20:05
[2024-10-10 19:27] LABS: NT-proBNP (BNP-Adult 18+) 46 pg/mL (<125); Troponin I < 0.012 ng/mL (0.01-0.034)
[2024-10-10 20:34] LABS: Reflexed Lactate in 2 Hours Y
[2024-10-10] MEDS: ALBUTEROL/IPRATROPIUM 3 ML AMPUL INH (21:15)
[2024-10-10 21:43] LABS: Lactate 2HR (Lactic Acid Rflx) 2.4 mmol/L (0.7-2.1)
[2024-10-10 21:56] LABS: Troponin I < 0.012 ng/mL (0.01-0.034)
== END 2024-10-10 22:29 | disposition home or self-care (01) ==
PROVIDERS: Emergency Medicine; Emergency Provider Family Medicine; PCP Family Medicine
DX: R07.9 Chest pain, unspecified (principal); M54.50 Low back pain, unspecified; D73.89 Other diseases of spleen
CPT/HCPCS: 71045; 71275; 80053; 82550; 83605; 83690; 83735; 83880; 84484; 85025; 85610; 85730; 93005; 93010; 94640; 99283; 99284; Q9967

== ENCOUNTER → 2024-12-01 07:37 | Outpatient (CLI) | payer OTHER, SELFPAY ==
[2024-12-01 08:57] LABS: Alanine Aminotransferase 52 IU/L (<35); Albumin 4.6 g/dL (3.5-5.0); Albumin Globulin Ratio 1.8 (1.0-2.8); Alkaline Phosphatase 114 U/L (38-126); Aspartate Aminotransferase 39 IU/L (14-36); BUN Creatinine Ratio 15.7 (6-22); Bilirubin Total 0.4 mg/dL (0.2-1.3); Blood Urea Nitrogen 11 mg/dL (7-17); Calcium 9.1 mg/dL (8.4-10.2); Carbon Dioxide 25 mmol/L (22-32); Chloride 104 mmol/L (98-107); Estimated Glomerular Filt Rate > 60 mL/min (>60); Globulin 2.6 g/dL (1.7-4.1); Glucose 117 mg/dL (70-99); HEMOLYSIS < 15 (0-50); Potassium 4.3 mmol/L (3.4-5.1); Sodium 141 mmol/L (137-145); Total Protein 7.2 g/dL (6.3-8.2)
[2024-12-01 08:59] LABS: Hemoglobin A1C% w Est Avg Glu 6.1 % (4.0-6.0)
== END ==
PROVIDERS: PCP Family Medicine; Referring Provider Family Medicine; Visit Provider Family Medicine
DX: E11.69 Type 2 diabetes mellitus with other specified complication (principal); E66.9 Obesity, unspecified; E03.9 Hypothyroidism, unspecified; E11.65 Type 2 diabetes mellitus with hyperglycemia
CPT/HCPCS: 36415; 80053; 83036

== ENCOUNTER → 2025-05-23 12:18 | Outpatient (CLI) | payer OTHER, SELFPAY ==
[2025-05-23 13:25] LABS: Add Manual Diff / Slide Review NO; Hematocrit 31.9 % (36-46); Hemoglobin 10.4 g/dL (12.0-16.0); Lymphocytes Absolute Auto 600 /uL (1100-4500); Mean Corpuscular HGB Conc 32.7 % (30-36); Mean Corpuscular Hemoglobin 27.5 PG (26-34); Mean Corpuscular Volume 84.2 fL (80-100); Platelet Count 228 X10^3/uL (150-400)
[2025-05-23 13:45] LABS: HEMOLYSIS < 15 (0-50); Iron 62 ug/dL (37-170)
[2025-05-23 13:55] LABS: Percent Iron Saturation 18 % (15-50); Total Iron Binding Capacity 345 ug/dL (265-497); Transferrin 288 mg/dL (206-381)
[2025-05-23 14:16] LABS: TSH w/ Reflex to FT4 6.00 uIU/mL (0.47-4.68)
[2025-05-23 14:20] LABS: Ferritin 28 ng/mL (6-137)
[2025-05-23 14:35] LABS: Vitamin B12 298 pg/mL (239-931)
[2025-05-23 14:36] LABS: Hemoglobin A1C% w Est Avg Glu 5.8 % (4.0-6.0)
[2025-05-23 16:55] LABS: Free T4, Direct Thyroxine 0.87 ng/dL (0.78-2.19)
== END ==
PROVIDERS: PCP Family Medicine; Referring Provider Family Medicine; Visit Provider Family Medicine
DX: C51.9 Malignant neoplasm of vulva, unspecified (principal); E11.69 Type 2 diabetes mellitus with other specified complication; E66.9 Obesity, unspecified; R74.8 Abnormal levels of other serum enzymes; E03.9 Hypothyroidism, unspecified; D64.9 Anemia, unspecified
CPT/HCPCS: 36415; 82607; 82728; 83036; 83540; 83550; 84439; 84443; 85025